=== PATIENT | female | born 1970 | race Caucasian/White ===

== ENCOUNTER 2017-02-13 06:14 | Observation (INO) | payer OTHER ==
[~2017-02-13] VITALS: Ht 160 cm; Wt 90.0 kg
[2017-02-13] VITALS (25 sets, daily range): BP systolic 94–129; BP diastolic 54–75; PULSE 56–80; RESP 15–26; Ht 160 cm; Wt 90.0 kg
[2017-02-13] MEDS ORDERED: metroNIDAZOLE 500 MG/100 ML NS IVPB ONE (07:00)
[2017-02-13] MEDS ORDERED: LEVO75TA65 PO (08:22)
[2017-02-13 09:01] LABS: BASOPHIL # 0.1 10^3/ul (0.0-0.1); BASOPHILS % 0.9 % (0.0-2.0); EOSINOPHILS # 0.2 10^3/ul (0.0-0.5); EOSINOPHILS % 2.6 % (0.0-7.0); HEMATOCRIT 41.6 % (37.0-47.0); HEMOGLOBIN 14.2 g/dl (12.0-16.0); LYMPHOCYTES # 2.2 10^3/ul (0.8-2.9); LYMPHOCYTES % 37.8 % (15.0-51.0); MEAN CORPUSCULAR HEMOGLOBIN 30.7 pg (29.0-33.0); MEAN CORPUSCULAR HGB CONC 34.1 g/dl (32.0-37.0); MEAN PLATELET VOLUME 10.3 fl (7.4-10.4); MONOCYTE # 0.4 10^3/ul (0.3-0.9); MONOCYTES % 6.3 % (0.0-11.0); NEUTROPHIL # 3.1 10^3/ul (1.6-7.5); NEUTROPHILS % 52.2 % (39.0-77.0); PLATELET COUNT 251 10^3/UL (140-415); RED BLOOD COUNT 4.62 10^6/ul (4.20-5.40); RED CELL DISTRIBUTION WIDTH 11.9 % (11.5-14.5); WHITE BLOOD COUNT 5.9 10^3/ul (4.8-10.8)
--- NOTE | 2017-02-13 09:17 | HPN ---
Date/Time of Note Date/Time of Note DATE: 02/13/17 TIME: 09:17 Interval H&P Admission Note Pt. seen H&P reviewed: No system changes AMIRA NATHAN MD Feb 13, 2017 09:17
[2017-02-13] MEDS ORDERED: METHYLENE BLUE 1% 10 ML INJ ONE (10:03)
[2017-02-13] MEDS ORDERED: VASOPRESSIN 20 UNITS INJ ONE (10:03)
[2017-02-13] MEDS ORDERED: THROMBIN 5000 UNIT VIAL ONE (10:03)
[2017-02-13] MEDS ORDERED: morphine SULFATE/PF (10 MG/10 ML) INJ ONE (10:10)
[2017-02-13] MEDS ORDERED: ROCURONIUM 50 MG INJ ONE (10:48)
[2017-02-13] MEDS ORDERED: SUCCINYLCHOLINE CHLORIDE 100 MG/5 ML SYG IV ONE (10:48)
[2017-02-13] MEDS ORDERED: LIDOCAINE 2% (SDV) 5 ML INJ ONE (10:48)
[2017-02-13] MEDS ORDERED: PROPOFOL 20 ML ONE (10:48)
[2017-02-13] MEDS ORDERED: CEFAZOLIN 1 GM INJ ONE (10:49)
[2017-02-13] MEDS ORDERED: morphine 2 MG INJ IV PRN (11:00)
[2017-02-13] MEDS ORDERED: ONDANSETRON 4 MG INJ IV PRN ×2 (11:00→12:30)
[2017-02-13] MEDS ORDERED: HYDROCODONE/APAP (5/325) TAB PO PRN (11:00)
[2017-02-13] MEDS ORDERED: DIPHENHYDRAMINE 50 MG INJ IV PRN ×2 (11:00→12:30)
[2017-02-13] MEDS ORDERED: CEFAZOLIN 1 GM in SOD CHLORIDE 0.9% 100 ML IVPB SCH (11:00)
[2017-02-13] MEDS: metroNIDAZOLE 500 MG/NS (PMX) 100 ML IVPB SCH ×2 (11:00→19:57)
--- NOTE | 2017-02-13 11:00 | HP ---
Date/Time of Note Date/Time of Note DATE: 02/13/17 TIME: 10:59 Assessment/Plan VTE Prophylaxis VTE Prophylaxis Intervention: SCD's Lines/Catheters IV Catheter Type (from Nrs): Peripheral IV HPI/ROS Admit Date/Time Admit Date/Time Hx of Present Illness Amira Nathan M.D. [facility] History and Physical Examination Marleny Waters Date:Feb 05, 2017 :1970 Age: 46 Physicians: Taxi Driver Supervisor Case Coordinator Oncologist Referring MD: Nereyda Ferreira History of the Present Illness: A 46 year old female with a gradually increasing pelvic mass. The mass is complex and mainly cystic and 8 cm with a normal CA-125 and right sided Medical history/ROS: Thyroid d/o. Ab0 x 3 Flu yes, , Pneumococcal no, declined Colonoscopy: never Last Pap Smear: 09/26/2016 ; Last Mammogram: 09/25/2016; Last Dexa: 09/26/2014 Surgical history: hyst, trachelectomy,back, ankle. Family Hx: Father -- Heart Disease and HTN; Mother -- Thyroid d/o Social HX: non-contributary ROS: as above Medications: 01/05/17 Diflucan 150 mg tablet 1 tablet by mouth DAILY 01/14/17 Flagyl 250 mg tablet 1 tablet by mouth as directed 1 po qd x 2 days amor 01/14/17 Golytely 236 gram-22.74 gram-6.74 gram-5.86 gram oral solution 1 mL by mouth as directed begin bowel prep at 12pm 01/14/17 Levaquin 250 mg tablet 1 tablet by mouth as directed 1 po qd x 2 days amor 01/05/17 levothyroxine 75 mcg tablet 1 tablet by mouth DAILY 01/14/17 [place] 5 mg-325 mg tablet 1 tablet by mouth Q6-8h Allergies: 01/05/17 Reglan Physical Examination Vitals (02/05/2017): Weight 203, Height 63, BP 120/80, BMI 36.0. General: Alert. HEENT: Pupils are equal, round, reactive to light and accommodation. Neck: Supple with no masses of lymphadenopathy. Breast: Deferred due to recent examination and responsibility of primary care physician. Chest: Clear to auscultation Heart: Normal rhythm with no murmur. Abdomen: Non tender, no ascites nor organomeglay. Pelvic exam: Large central cystic mass, no cul-de-sac nodularity noted Rectal: confirmatory with pelvic exam. Neurological: Grossly intact Assessment: Pelvic mass Plan: laparoscopic USO, possible BSO, possible UD, staging and possible open. All risks and benefits of this procedure have been discussed in detail with the patient, as well as alternative treatment strategies and their implications. The patient is aware that there is some possibility of a blood transfusion and its associated risks and benefits. She wishes to proceed and gives her informed consent. Amira Nathan M.D. PMH/Family/Social Social History Smoking Status: Never smoker Exam/Review of Systems Vital Signs Vitals Vital Signs Date Time Temp Pulse Resp B/P Pulse Ox O2 Delivery O2 Flow Rate FiO2 02/13/17 08:59 98.3 56 18 129/74 100 Room Air Labs Result Diagram: 02/13/17 0850 AMIRA NATHAN MD Feb 13, 2017 11:00
[2017-02-13] MEDS ORDERED: HEMOSTATIC MATRIX SYG ZFS ONE (11:46)
[2017-02-13] MEDS ORDERED: SUGAMMADEX SODIUM 200 MG/2 ML VIAL IV ONE (12:13)
[2017-02-13] MEDS ORDERED: HYDROmorphONE (0.2 MG/ML) 10ML SYG IV PRN ×2 (12:30)
[2017-02-13] MEDS ORDERED: MEPERIDINE 25 MG INJ IV PRN (12:30)
[2017-02-13] MEDS ORDERED: FENTAnyl 50 MCG/ML VIAL IV PRN ×2 (12:30)
--- NOTE | 2017-02-13 13:12 | OPR ---
Date/Time of Note Date/Time of Note DATE: 02/13/17 TIME: 13:12 Operative Report Free Text/Dictation 1 OPERATIVE REPORT [facility] Name: Marleny Waters Medical Date: 02/13/17 Preoperative Diagnosis: 1- Right adnexal mass 2- Pelvic pain Postoperative Diagnosis: 1- Same with pathology pending 2- Extensive adhesions 3- Retroperitoneal ureteral distortion Procedures: 1- Right salpingoophorectomy 2- Ureteral dissection with repositioning 3- Retroperitoneal uterine/hypogastric artery ligation 4- Enterolysis Surgeon: Dr. Nathan Director Of Cardiology Service Line: Dr. Julissa Schmidt MACHINIST [employer] Anesthesia: General with regional Indication for Procedure The patient is a 46-year old female with a complex right adnexal mass and pain with normal/minimally elevated markers. She had a prior hysterectomy. After considering all options with risks and benefits it was decided to do a laparoscopic right salpingoophorectomy and possible ureteral dissection and possible BSO with staging if needed. Findings and Summary After laparoscopic placement enterolysis was required and a right adnexal mass was noted adherent to the sidewall although both adnexia were adherent to the sidewalls. Due to adherence of the adnexal mass to the sidewall a retroperitoneal exploration and ureteral dissection with repositioning was needed, after which the mass was removed and confirmed to be benign on frozen section. Additionally, due to hypervascularity and adherence to the sidewall the remnant of uterine artery with areas adjacent to hypogastric artery was clipped for additional hemostasis on the side of the adnexal mass. The laparoscopic RSO was completed without incident. Procedure: After being prepped and draped in the usual manner an EEA sizer and pneumo- occluder was inserted vaginally. Subsequently, we placed a 5 mm trocar cephlad to the umbilicus without incident and insufflated to 15 mm Hg, after which we and placed two 5 millimeter trocars laterally and lysed considerable omental adhesions with the Omni and Thunderbeat and mobilized a right adnexal mass densely adherent to the sidewall, after which a 12 millimeter trocar suprapubically. At this time additional extensive pelvic adhesions were lysed with sharp dissection. Subsequently we explored and noted a large right complex adnexal mass densely adherent to the sidewall with a smaller normal appearing contralateral adnexal densely adherent to the pelvic sidewall. Hence , on the right side of the pathology, the residual round ligament was transected with an Thunderbeat and the retroperitoneum opened parallel to the infundibulo-pelvic (IP) ligament with the Omni. The ureter was identified, and noted to be densely adherent to the pathology and significantly distorted anatomically, hence requiring a ureteral dissection/repositioning as a separate procedure. The ureter was dissected away and repositioned with great care using the endo-dissector, with the Omni, after which the ureter was repositioned laterally. This process was carried out throughout the ureteral length in the pelvis and it peristalsed normally subsequently to being repositioned without incident with the Gyrus bipolar cutting forceps and Omni. At this time the mass was dissected from the adjacent bowel mesentery and the ureter was further dissected and the IP ligament was better isolated. Subsequently, the IP ligament was cauterized and transected with a Thunderbeat and Omni. The adnexia with adherent peritoneum was mobilized with an Omni while visualizing the ureter and the ureter was further dissected and mobilized. Subsequently the right adnexia with mass was dissected from the bladder with the Omni and the andexia was fully by transaction of residual triple pedical with Gyrus bipolar cutting forceps, Omni and Thunderbeat. The adnexia was sent to pathology and confirmed to be benign. Due to persistent oozing and ureteral stricture additional ureteral dissection was accomplished and in the process the adjacent uterine artery was clipped due to ooze and for hemostasis. After irrigating and assuring hemostasis the 12- millimeter trocar was removed and the fascia was closed with 0-vicryl using an endo-close devise. The gas was removed and the skin of all sites then closed with 2-0 Vicryl suture and 4-0 Monocryl suture. The EBL was 75 cc and the patient tolerated the procedure well and left the OR in good condition. Colten Nathan M.D. COLTEN NATHAN MD Feb 13, 2017 13:12
[2017-02-13 13:45] LABS: BASOPHIL # 0.1 10^3/ul (0.0-0.1); BASOPHILS % 0.4 % (0.0-2.0); EOSINOPHILS # 0.1 10^3/ul (0.0-0.5); EOSINOPHILS % 0.9 % (0.0-7.0); HEMATOCRIT 43.4 % (37.0-47.0); HEMOGLOBIN 14.2 g/dl (12.0-16.0); LYMPHOCYTES # 2.9 10^3/ul (0.8-2.9); LYMPHOCYTES % 24.9 % (15.0-51.0); MEAN CORPUSCULAR HEMOGLOBIN 29.8 pg (29.0-33.0); MEAN CORPUSCULAR HGB CONC 32.7 g/dl (32.0-37.0); MEAN PLATELET VOLUME 10.8 fl (7.4-10.4); MONOCYTE # 0.4 10^3/ul (0.3-0.9); MONOCYTES % 3.7 % (0.0-11.0); NEUTROPHIL # 8.1 10^3/ul (1.6-7.5); NEUTROPHILS % 69.7 % (39.0-77.0); RED BLOOD COUNT 4.77 10^6/ul (4.20-5.40); WHITE BLOOD COUNT 11.7 10^3/ul (4.8-10.8)
[2017-02-13 13:48] LABS: PLATELET COUNT 160 10^3/UL (140-415)
[2017-02-13 14:03] LABS: CALCIUM 8.3 mg/dl (8.4-10.2); CREATININE 0.75 mg/dl (0.44-1.00)
[2017-02-13] MEDS: POTASSIUM CHLORIDE 20 MEQ in LACTATED RINGER'S 1,000 ML IV SCH ×2 (16:46→20:52)
[2017-02-13] MEDS: FAMOTIDINE 20 MG INJ IV SCH (20:52)
[2017-02-13] MEDS: CEFAZOLIN 1 GM/50 ML (PMX) 50 ML IVPB SCH (20:52)
[2017-02-14 00:04] VITALS: BP 101/58; RESP 18
[2017-02-14] MEDS: metroNIDAZOLE 500 MG/NS (PMX) 100 ML IVPB SCH (02:19)
[2017-02-14] MEDS: CEFAZOLIN 1 GM/50 ML (PMX) 50 ML IVPB SCH ×2 (03:24→11:57)
[2017-02-14 07:56] VITALS: BP 106/63; RESP 14
[2017-02-14] MEDS: POTASSIUM CHLORIDE 20 MEQ in LACTATED RINGER'S 1,000 ML IV SCH (07:59)
[2017-02-14] MEDS: FAMOTIDINE 20 MG INJ IV SCH (09:23)
--- NOTE | 2017-02-14 12:21 | PN ---
Date/Time of Note Date/Time of Note DATE: 02/14/17 TIME: 12:18 Assessment/Plan VTE Prophylaxis VTE Prophylaxis Intervention: SCD's Lines/Catheters IV Catheter Type (from Nrsg): Peripheral IV Assessment/Plan Chief Complaint/Hosp Course benign pelvic mass Problems: Assessment/Plan A- doing well P- adv diet and possibly d/c Subjective 24 Hr Interval Summary Free Text/Dictation + flatus and OOB, voided Exam/Review of Systems Vital Signs Vitals Vital Signs Date Time Temp Pulse Resp B/P Pulse Ox O2 Delivery O2 Flow Rate FiO2 02/14/17 07:56 98.9 69 14 106/63 97 02/13/17 16:30 Nasal Cannula 2.0 Intake and Output 02/13/17 02/13/17 02/14/17 15:00 23:00 07:00 Intake Total 1700 ml 880 ml 630 ml Output Total 260 ml 400 ml 1500 ml Balance 1440 ml 480 ml -870 ml Exam Resp- clear CVS-- nsr Abd- soft, clean Ext- NT no edema Results Result Diagram: 02/13/17 1335 02/13/17 1335 Results 24 hrs Laboratory Tests Test 02/13/17 13:35 White Blood Count 11.7 #H Red Blood Count 4.77 Hemoglobin 14.2 Hematocrit 43.4 Mean Corpuscular Volume 91.0 Mean Corpuscular Hemoglobin 29.8 Mean Corpuscular Hemoglobin Concent 32.7 Red Cell Distribution Width 12.0 Platelet Count 160 # Mean Platelet Volume 10.8 H Neutrophils % 69.7 Lymphocytes % 24.9 Monocytes % 3.7 Eosinophils % 0.9 Basophils % 0.4 Nucleated Red Blood Cells % 0.0 Neutrophils # 8.1 H Lymphocytes # 2.9 Monocytes # 0.4 Eosinophils # 0.1 Basophils # 0.1 Nucleated Red Blood Cells # 0.0 Sodium Level 143 Potassium Level 4.0 Chloride Level 105 Carbon Dioxide Level 22 Anion Gap 20 H Blood Urea Nitrogen 11 Creatinine 0.75 Glucose Level 101 Calcium Level 8.3 L Medications Medications Current Medications Morphine Sulfate (morphine) 2 mg Q2H PRN IV PAIN LEVEL 6-10; Start 02/13/17 at 11:00 Acetaminophen/ Hydrocodone Bitart ([place] (5/325)) 1 tab Q6H PRN PO PAIN LEVEL 6 -10; Start 02/13/17 at 11:00 Diphenhydramine HCl (Benadryl) 25 mg Q6H PRN IV ITCHING; Start 02/13/17 at 11: 00 Ondansetron HCl (Zofran Inj) 4 mg Q6H PRN IV NAUSEA AND/OR VOMITING Last administered on 02/13/17 13:07; Admin Dose 4 MG; Start 02/13/17 at 11:00 Famotidine 20 mg 20 mg Q12 IV Last administered on 02/14/17 09:23; Admin Dose 20 MG; Start 02/13/17 at 21:00 Potassium Chloride 20 meq/ Lactated Ringer's 1,010 ml @ 100 mls/hr Q10H6M IV Last administered on 02/14/17 07:59; Admin Dose 100 MLS/HR; Start 02/13/17 at 11:00 Cefazolin Sodium (Ancef 1 Gm/50 ml (Pmx)) 50 ml @ 100 mls/hr Q8H IVPB Last administered on 02/14/17 11:57; Admin Dose 100 MLS/HR; Start 02/13/17 at 20:00 ; Stop 02/14/17 at 19:59 AMIRA NATHAN MD Feb 14, 2017 12:21
== END 2017-02-14 15:50 | disposition home or self-care (01) ==
LOC: SDS 06:14 → MS1 11:00 → UNDODISOB 15:15
DX: D27.0 Benign neoplasm of right ovary (principal); N83.8 Other noninflammatory disorders of ovary, fallopian tube and broad ligament; N73.6 Female pelvic peritoneal adhesions (postinfective); E03.9 Hypothyroidism, unspecified; E66.9 Obesity, unspecified; Z68.35 Body mass index [BMI] 35.0-35.9, adult; Z90.710 Acquired absence of both cervix and uterus
CPT/HCPCS: 58661; 80048; 85025; 86850; 86900; 86901; 86920; 87086; 88307; 88331; J0690; J1200; J2175; J2274; J2405; J3480; J7120; J7999; Z7500; Z7512; Z7610; G0378